=== PATIENT | male | born 1985 | race Caucasian/White ===

== ENCOUNTER 2018-01-04 16:12 | Emergency (ER) | END 2018-01-05 07:38 ==

== ENCOUNTER 2018-08-06 22:02 | Emergency (ER) | payer OTHER ==
[~2018-08-06] VITALS: Ht 172.7 cm; Wt 78.4 kg
[2018-08-06 22:09] VITALS: Ht 172.7 cm; Wt 78.4 kg
--- NOTE | 2018-08-06 22:23 | ERD ---
ER Documentation Chief Complaint Chief Complaint SI WITH ANXIETY; STATES PLAN TO CUT HIS WRIST HPI The patient is a 32-year-old male, presenting to the ER because of hallucination, suicidal ideation with plan to cut his wrists, has been off his medication for the last few days, denies homicidal ideation, visual hallucination, headache, neck pain, chest pain, dyspnea, abdominal pain, vomiting, dysuria, diarrhea. He was seen earlier today at [facility] for similar symptoms. He smokes, drinks, does not amphetamine, homeless Past medical history: Bipolar, schizophrenia Surgical history: Right foot ROS All systems reviewed and are negative except as per history of present illness. Medications Home Meds No Active Prescriptions or Reported Meds Allergies Allergies: Coded Allergies: Penicillins (Verified Allergy, Mild, 01/04/18) PMhx/Soc History of Surgery: No Anesthesia Reaction: No Hx Neurological Disorder: No Hx Respiratory Disorders: No Hx Cardiac Disorders: No Hx Psychiatric Problems: No Hx Miscellaneous Medical Probl: No Hx Alcohol Use: Yes Hx Substance Use: No Hx Tobacco Use: Yes Physical Exam Vitals Vital Signs Date Temp Pulse Resp B/P (MAP) Pulse Ox O2 O2 Flow FiO2 Time Delivery Rate 08/06/18 105 16 121/83 100 Room Air 23:30 (96) 08/06/18 97.6 113 18 132/88 100 22:09 (103) Physical Exam Const: No acute distress. Head: Atraumatic. Eyes: Normal Conjunctiva. ENT: Normal External Ears, Nose and Mouth. Neck: Full range of motion. No meningismus. Resp: Clear to auscultation bilaterally. Cardio: Regular tachycardic. Abd: Soft, non distended, normal bowel sounds, non tender. Skin: No petechiae or rashes. Back: No midline or flank tenderness. Ext: No cyanosis, or edema. Neur: Awake and alert. No focal deficit Psych: Normal Mood and Affect. Result Diagram: 08/06/18224408/06/182244 Results 24 hrs Laboratory Tests Test 08/06/18 22:45 White Blood Count 8.6 10^3/ul Red Blood Count 4.39 10^6/ul Hemoglobin 13.0 g/dl Hematocrit 37.7 % Mean Corpuscular Volume 85.9 fl Mean Corpuscular Hemoglobin 29.6 pg Mean Corpuscular Hemoglobin Concent 34.5 g/dl Red Cell Distribution Width 13.2 % Platelet Count 261 10^3/UL Mean Platelet Volume 9.6 fl Immature Granulocytes % 0.300 % Neutrophils % 67.5 % Lymphocytes % 21.7 % Monocytes % 9.8 % Eosinophils % 0.2 % Basophils % 0.5 % Nucleated Red Blood Cells % 0.0 /100WBC Immature Granulocytes # 0.030 10^3/ul Neutrophils # 5.8 10^3/ul Lymphocytes # 1.9 10^3/ul Monocytes # 0.8 10^3/ul Eosinophils # 0.0 10^3/ul Basophils # 0.0 10^3/ul Nucleated Red Blood Cells # 0.0 10^3/ul Urine Color YELLOW Urine Clarity CLEAR Urine pH 5.0 Urine Specific [place] 1.023 Urine Ketones TRACE mg/dL Urine Nitrite NEGATIVE mg/dL Urine Bilirubin NEGATIVE mg/dL Urine Urobilinogen 1+ mg/dL Urine Leukocyte Esterase NEGATIVE [place]/ul Urine Microscopic RBC 0 /HPF Urine Microscopic WBC 0 /HPF Urine Hemoglobin 2+ mg/dL Urine Glucose NEGATIVE mg/dL Urine Total Protein NEGATIVE mg/dl Sodium Level 135 mmol/L Potassium Level 4.3 mmol/L Chloride Level 98 mmol/L Carbon Dioxide Level 25 mmol/L Anion Gap 12 Blood Urea Nitrogen 20 mg/dl Creatinine 0.81 mg/dl Est Glomerular Filtrat Rate mL/min > 60 mL/min Glucose Level 76 mg/dl Calcium Level 9.2 mg/dl Total Bilirubin 1.0 mg/dl Direct Bilirubin 0.00 mg/dl Indirect Bilirubin 1.0 mg/dl Aspartate Amino Transf (AST/SGOT) 31 IU/L Alanine Aminotransferase (ALT/SGPT) 26 IU/L Alkaline Phosphatase 135 IU/L Total Protein 7.9 g/dl Albumin 4.4 g/dl Globulin 3.50 g/dl Albumin/Globulin Ratio 1.25 Salicylates Level < 1.0 mg/dl Urine Opiates Screen NEGATIVE Acetaminophen Level < 10.0 ug/ml Urine Barbiturates NEGATIVE Urine Amphetamines Screen POSITIVE Urine Benzodiazepines Screen NEGATIVE Urine Cocaine Screen NEGATIVE Urine Cannabinoids NEGATIVE Ethyl Alcohol Level 20.0 mg/dl Procedures/MDM MEDICAL MAKING DECISION: The patient is a 32-year-old male, presenting with acute suicidal ideation, substance abuse The differential diagnoses considered include but are not limited to drug- induced psychosis, psychosis, decompensated psychiatric illness, medical noncompliance Departure Diagnosis: Primary Impression: Suicidal ideation Additional Impressions: Substance abuse Anemia Condition: Stable Comments The patient's blood pressure was elevated (>120/80) but appears stable without evidence of hypertension emergency or urgency. The patient was counseled about the risks of hypertension and urged to pursue outpatient monitoring and therapy within a week with their primary care physician. I discussed the patient with the on-call telepsychiatrist at 1 AM, who recommended voluntary psychiatric admission and his recommendations were carried out He is cleared for psychiatric evaluation and admission PHILIPPE BELLO MD Aug 06, 2018 22:23
--- NOTE | 2018-08-07 01:05 | PSY ---
Date/Time of Note Date/Time of Note DATE: 08/07/18 TIME: 01:00 Psychiatric Subjective Eval Consent Pt consented to telemedicine: Yes Subjective Evaluation Patient location: emergency Chief Complaint: SI WITH ANXIETY; STATES PLAN TO CUT HIS WRIST Reason for consult: SUICIDAL IDEATION Hospitalization: Suicidal Attempt(s) Medical history Problems Medical Problems: (1) Auditory hallucinations Status: Acute (2) Auditory hallucinations Status: Acute (3) Methamphetamine abuse Status: Acute (4) Psychosis Status: Acute Allergies: Coded Allergies: Penicillins (Verified Allergy, Mild, 01/04/18) Social History Marital status: single DPA/Conservatorship: No Psychiatric Objective Eval Mental Status Examination: Laboratory Results Laboratory Tests Test 08/06/18 22:45 White Blood Count 8.6 10^3/ul Red Blood Count 4.39 10^6/ul Hemoglobin 13.0 g/dl Hematocrit 37.7 % Mean Corpuscular Volume 85.9 fl Mean Corpuscular Hemoglobin 29.6 pg Mean Corpuscular Hemoglobin Concent 34.5 g/dl Red Cell Distribution Width 13.2 % Platelet Count 261 10^3/UL Mean Platelet Volume 9.6 fl Immature Granulocytes % 0.300 % Neutrophils % 67.5 % Lymphocytes % 21.7 % Monocytes % 9.8 % Eosinophils % 0.2 % Basophils % 0.5 % Nucleated Red Blood Cells % 0.0 /100WBC Immature Granulocytes # 0.030 10^3/ul Neutrophils # 5.8 10^3/ul Lymphocytes # 1.9 10^3/ul Monocytes # 0.8 10^3/ul Eosinophils # 0.0 10^3/ul Basophils # 0.0 10^3/ul Nucleated Red Blood Cells # 0.0 10^3/ul Urine Color YELLOW Urine Clarity CLEAR Urine pH 5.0 Urine Specific [place] 1.023 Urine Ketones TRACE mg/dL Urine Nitrite NEGATIVE mg/dL Urine Bilirubin NEGATIVE mg/dL Urine Urobilinogen 1+ mg/dL Urine Leukocyte Esterase NEGATIVE [place]/ul Urine Microscopic RBC 0 /HPF Urine Microscopic WBC 0 /HPF Urine Hemoglobin 2+ mg/dL Urine Glucose NEGATIVE mg/dL Urine Total Protein NEGATIVE mg/dl Sodium Level 135 mmol/L Potassium Level 4.3 mmol/L Chloride Level 98 mmol/L Carbon Dioxide Level 25 mmol/L Anion Gap 12 Blood Urea Nitrogen 20 mg/dl Creatinine 0.81 mg/dl Est Glomerular Filtrat Rate mL/min > 60 mL/min Glucose Level 76 mg/dl Calcium Level 9.2 mg/dl Total Bilirubin 1.0 mg/dl Direct Bilirubin 0.00 mg/dl Indirect Bilirubin 1.0 mg/dl Aspartate Amino Transf (AST/SGOT) 31 IU/L Alanine Aminotransferase (ALT/SGPT) 26 IU/L Alkaline Phosphatase 135 IU/L Total Protein 7.9 g/dl Albumin 4.4 g/dl Globulin 3.50 g/dl Albumin/Globulin Ratio 1.25 Salicylates Level < 1.0 mg/dl Urine Opiates Screen NEGATIVE Acetaminophen Level < 10.0 ug/ml Urine Barbiturates NEGATIVE Urine Amphetamines Screen POSITIVE Urine Benzodiazepines Screen NEGATIVE Urine Cocaine Screen NEGATIVE Urine Cannabinoids NEGATIVE Ethyl Alcohol Level 20.0 mg/dl Assessment and Plan Recommendation/Plan Discharge Disposition: Psychiatric inpatient Legal Status: Voluntary Assessment Additional comments: IDENTIFYING INFORMATION: 32 year old Male patient who is currently located at the hospital and for whom psychiatric consultation was requested. SOURCES OF INFORMATION: The patient who appears to be somewhat reliable and the medical records; the nursing staff. CHIEF COMPLAINT: "anxiety". HISTORY OF PRESENT ILLNESS: The patient was interviewed via telemedicine in the presence of and under the supervision of nursing staff of the hospital. The consent to conducting this interview via telemedicine was obtained by the nursing staff at the hospital. ALLIE Lockett reports that the patient presented with SI, AH. The patient reports having anxiety in the context of using meth. Admits to hearing voices, paranoid thoughts, SI with plan to cut wrist, depressed mood. The patient denies using alcohol heavily or regularly. The patient reports using meth occasionally. Relapsed a few days ago. Last use was today. The patient denies using any other substances. In terms of past psychiatric history, the patient reports having a history of past psychiatric hospitalizations. The patient reports having a history of past suicide attempts. Past medication trials: risperdal, depakote. PAST MEDICAL HISTORY: none. CURRENT MEDICATIONS: none. ALLERGIES TO MEDICATIONS: PCN. LABORATORY TESTS: CBC with H/H 13/37.7, CMP wnl, UDS + amph, alcohol level 20. SOCIAL HISTORY: single, has children; not employed, homeless, no access to firearms. REVIEW OF SYSTEMS: Constitutional (e.g., fever, weight loss): negative; Eyes, Ears, Nose, Mouth, Throat: negative; Cardiovascular: negative; Respiratory: negative; Gastrointestinal: negative; Genitourinary: negative; Musculoskeletal: negative; Integumentary (skin and/or breast): negative; Neurological: negative; Psychiatric: as per HPI; Endocrine: negative; Hematologic/Lymphatic: negative; Allergic/Immunologic: negative. MENTAL STATUS EXAMINATION: General Appearance and Behavior: Calm, cooperative with the interview, pleasant with the current interviewer, makes fair eye contact, fairly groomed, no abnormal movements noted, Speech: Regular rate, regular rhythm, normal latency, normal volume, somewhat decreased amount, Flow of thought: sequential, logical, goal-directed, Content of thought: + auditory hallucinations, no visual hallucinations, + delusions, positive for suicidal ideation; no homicidal ideation, Mood: "depressed", Affect: dysthymic, dysphoric, not reactive, Attention: normal based on the interview, Insight: fair, Judgment: poor, Memory: normal based on the interview, Sensorium: alert and oriented to person, place and date. ASSESSMENT: The patient's presentation and history are consistent with the diagnosis of unspecified psychotic disorder, stimulant use disorder. The patient presents with an exacerbation of psychosis in the context of medication noncompliance, psychosocial stressors and substance use. PLAN: - Medication management: Would start risperidone 0.5 mg po bid, depakote 250 mg po bid. Would start haloperidol 5 mg IM PRN severe agitation q4 hours. Would start diphenhydramine 50 mg IM PRN severe agitation q4 hours. Would start lorazepam 2 mg IM PRN severe agitation q4 hours Will defer to the inpatient psychiatry team for other medication changes. - Labs: No other laboratory tests are needed at this time. - Psychotherapy: Provided supportive psychotherapy and psychoeducation. - Disposition: Would recommend voluntary admission to the inpatient psychiatric unit as the patient would benefit from such an intervention so long as the patient has been cleared medically for admission to psychiatry. The patient is agreeable to being hospitalized in the inpatient psychiatric unit at this time. Would place on suicide precautions. Discussed about the above plan with JAME Damon MD Aug 07, 2018 01:05
[2018-08-07] MEDS: DIVALPROEX (EC) 250 MG TAB PO SCH ×2 (01:27→09:39)
[2018-08-07] MEDS: RISPERIDONE 0.25 MG TAB PO SCH ×2 (01:28→09:39)
[2018-08-07 06:00] VITALS: BP 113/70; PULSE 102; RESP 14
[2018-08-07] MEDS ORDERED: LORAZEPAM 1 MG TAB PO ONE (07:00)
[2018-08-07] MEDS ORDERED: DIPHENHYDRAMINE 1%/ZINC 28.3 GM CR TOP ONE (08:00)
--- NOTE | 2018-08-07 09:51 | EN ---
Date/Time of Note Date/Time of Note DATE: 08/07/18 TIME: 09:50 ER Progress Note This patient has been accepted at [facility] in [place] under Dr. Camejo. The patient has remained hemodynamically stable and has an expected pickup time of 11 AM GAETANO RODRIGUEZ DO Aug 07, 2018 09:51
== END 2018-08-07 11:10 ==
LOC: E/R 22:02
DX: F15.10 Other stimulant abuse, uncomplicated (principal); D64.9 Anemia, unspecified; Z87.891 Personal history of nicotine dependence
CPT/HCPCS: 36415; 80053; 80307; 81001; 85025; Z7502; Z7610